=== PATIENT | female | born 1935 | race Caucasian/White ===

== ENCOUNTER 2022-03-27 20:01 | Day surgery (SDCO) | payer OTHER ==
[~2022-03-27] VITALS: Ht 162.6 cm; Wt 90.9 kg
[~2022-03-27 20:01] MED LIST: AMLODIPINE BESYL5 MG PO; ASPIRIN EC81 MG PO; COZAAR100 MG PO; HCTZ25 MG PO; LORAZEPAM1 MG PO; METFORMIN HCL500 M3 PO; METOPROLOL SUCC25 MG PO; NOVOLOG MI100 UNIT/3 SC
[2022-03-27 20:49] LABS: BASOPHIL 0.6 % (0-2); EOSINOPHIL 0.6 % (0-7); HCT 43.9 % (37.0-47.0); HGB 14.5 g/dl (12.5-16.0); LYMPHOCYTE 5.9 % (15-48); MCH 29.5 pg (25.0-31.0); MCV 89.2 fL (78.0-100.0); MONOCYTE 9.1 % (0-12); MPV 11.7 fL (6.0-9.5); NRBC 0; PLT 167 K/uL (150-400); RBC 4.92 M/uL (4.20-5.40); RDW 13.2 % (11.5-14.0); WBC 3.4 K/uL (4.0-10.5)
[2022-03-27 20:54] LABS: NEUTROPHIL 83.2 % (41-80)
[2022-03-27 21:02] LABS: ALBUMIN 3.1 g/dL (3.4-5.0); BILIRUBIN - TOTAL 0.7 mg/dL (0.2-1.0); BUN/CREAT RATIO (CALC) 29.3 RATIO; CREATININE 0.92 mg/dL (0.51-0.95); GLOBULIN (CALCULATION) 3.4 g/dL; POTASSIUM 4.2 mmol/L (3.5-5.1); TOTAL PROTEIN 6.5 g/dL (6.4-8.2)
[2022-03-27 21:53] LABS: CORONAVIRUS 2019 SARS-COV-2 NEGATIVE (NEGATIVE); INFLUENZA A NAA NEGATIVE (NEGATIVE)
[2022-03-28 02:16] LABS: BILIRUBIN NEGATIVE (NEGATIVE); BLOOD NEGATIVE Ery/uL (NEGATIVE); CLARITY CLEAR (CLEAR); COLOR YELLOW (YELLOW); GLUCOSE (U) 2+ mg/dL (NORMAL); LEUKOCYTES NEGATIVE Leu/uL (NEGATIVE); NITRITE NEGATIVE (NEGATIVE); PROTEIN 1+ mg/dL (NEGATIVE); SPECIFIC GRAVITY >=1.030 (1.001-1.030); UROBILINOGEN 0.2 mg/dL (0.2-1.0)
[2022-03-28 02:22] LABS: BACTERIA TRACE; SQUAMOUS EPITHELIAL CELLS RARE
[2022-03-28] MEDS ORDERED: NOVOLOG MI100 UNIT/3 SC ×2 (04:38→04:39)
[2022-03-28] MEDS ORDERED: JANUVIA50 M1 PO (04:41)
[2022-03-28] MEDS ORDERED: EYE VITAMIN PO (04:41)
[2022-03-28 05:51] LABS: BASOPHIL 0.4 % (0-2); HCT 36.1 % (37.0-47.0); HGB 11.9 g/dl (12.5-16.0); LYMPHOCYTE 20.5 % (15-48); MCH 29.6 pg (25.0-31.0); MCV 89.8 fL (78.0-100.0); MONOCYTE 15.1 % (0-12); MPV 11.3 fL (6.0-9.5); NEUTROPHIL 59.6 % (41-80); NRBC 0; PLT 152 K/uL (150-400); RBC 4.02 M/uL (4.20-5.40); RDW 13.3 % (11.5-14.0)
[2022-03-28 05:53] LABS: WBC 2.8 K/uL (4.0-10.5)
[2022-03-28 06:22] LABS: LACTIC ACID 0.8 mmol/L (0.4-1.9)
[2022-03-28 06:24] LABS: BUN/CREAT RATIO (CALC) 31.6 RATIO; C-REACTIVE PROTEIN 11.8 mg/dL (<=0.90); CREATININE 0.79 mg/dL (0.51-0.95); POTASSIUM 3.6 mmol/L (3.5-5.1)
[2022-03-28] MEDS ORDERED: FOLIC ACID1 MG PO (14:36)
== END 2022-03-28 15:15 | disposition home or self-care (01) ==
LOC: FER 20:01 → FMS 03-28 02:34
PROVIDERS: Internal Medicine; Nurse Practitioner Acute Care; ADMIT Internal Medicine
DX: A41.9 Sepsis, unspecified organism (principal); A09 Infectious gastroenteritis and colitis, unspecified; R65.20 Severe sepsis without septic shock; E87.2 Acidosis; R82.71 Bacteriuria; E11.22 Type 2 diabetes mellitus with diabetic chronic kidney disease; I13.0 Hypertensive heart and chronic kidney disease with heart failure and stage 1 through stage 4 chronic kidney disease, or unspecified chronic kidney disease; N18.2 Chronic kidney disease, stage 2 (mild); I50.9 Heart failure, unspecified; D64.9 Anemia, unspecified; I25.2 Old myocardial infarction; E11.65 Type 2 diabetes mellitus with hyperglycemia; G25.81 Restless legs syndrome; I25.10 Atherosclerotic heart disease of native coronary artery without angina pectoris; Z20.822 Contact with and (suspected) exposure to COVID-19; Z87.891 Personal history of nicotine dependence; Z95.5 Presence of coronary angioplasty implant and graft; Z96.651 Presence of right artificial knee joint; Z90.710 Acquired absence of both cervix and uterus; Z79.82 Long term (current) use of aspirin; Z88.5 Allergy status to narcotic agent; Z88.2 Allergy status to sulfonamides; Z91.041 Radiographic dye allergy status; Z91.040 Latex allergy status
CPT/HCPCS: 36415; 80048; 80053; 81001; 82009; 82728; 83036; 83605; 84145; 84484; 85025; 86140; 87040; 87088; 93005; 94010; G0378; J0456; J1650; J2405; J2543; J2550; J7030; J7050; U0002